=== PATIENT | female | born 1960 ===

== ENCOUNTER 2017-09-25 13:07 | Emergency (ER) | payer MEDICAID, OTHER ==
[2017-09-25] MEDS ORDERED: BENAZEPRIL 20 MG TAB PO (14:30)
[2017-09-25] MEDS ORDERED: HYDROCHLOROTHIAZIDE 25 MG TAB PO (14:30)
[2017-09-25] MEDS: BENAZEPRIL 10 MG TAB PO (14:55)
== END 2017-09-25 15:10 | disposition home or self-care (01) ==
LOC: FTE 13:07
DX: I10 Essential (primary) hypertension (principal)
CPT/HCPCS: 99283-25; Z7502